=== PATIENT | female | born 1965 | race Hispanic/Latino ===

== ENCOUNTER → 2017-12-08 | Outpatient (CLI) | payer OTHER | END | disposition home or self-care (01) | LOC: OIH 13:29 | PROVIDERS: ATTEND Family Medicine | DX: Z13.6 Encounter for screening for cardiovascular disorders (principal) | CPT/HCPCS: 75571 ==

== ENCOUNTER → 2017-12-12 | Outpatient (CLI) | payer BC | END | disposition home or self-care (01) | LOC: OIH 15:09 | PROVIDERS: ATTEND Family Medicine | DX: I10 Essential (primary) hypertension (principal) | CPT/HCPCS: 71046 ==

== ENCOUNTER → 2018-03-13 | Outpatient (CLI) | payer BC | END | disposition home or self-care (01) | LOC: RAH 11:06 | PROVIDERS: ATTEND Family Medicine | DX: R22.1 Localized swelling, mass and lump, neck (principal) | CPT/HCPCS: 76536 ==

== ENCOUNTER → 2018-04-15 | Outpatient (CLI) | payer BC | END | disposition home or self-care (01) | LOC: RAH 08:30 | PROVIDERS: ATTEND Obstetrics & Gynecology | DX: Z12.31 Encounter for screening mammogram for malignant neoplasm of breast (principal); N63.21 Unspecified lump in the left breast, upper outer quadrant | CPT/HCPCS: 77067 ==

== ENCOUNTER → 2018-04-22 | Outpatient (CLI) | payer BC | END | disposition home or self-care (01) | LOC: RAH 10:56 | PROVIDERS: ATTEND Obstetrics & Gynecology | DX: N60.02 Solitary cyst of left breast (principal) | CPT/HCPCS: 76641 ==

== ENCOUNTER → 2018-05-05 | Outpatient (CLI) | payer BC | END | disposition home or self-care (01) | LOC: RAH 07:54 | PROVIDERS: ATTEND Obstetrics & Gynecology | DX: N60.02 Solitary cyst of left breast (principal) | CPT/HCPCS: 76642 ==

== ENCOUNTER → 2022-10-18 | Outpatient (CLI) | payer BC | END | disposition home or self-care (01) | LOC: RAH 12:24 | PROVIDERS: ATTEND Obstetrics & Gynecology | DX: N60.02 Solitary cyst of left breast (principal); N60.12 Diffuse cystic mastopathy of left breast | CPT/HCPCS: 76641; 77066 ==

== ENCOUNTER → 2023-07-03 | Outpatient (CLI) | payer BC | END | disposition home or self-care (01) | LOC: RAH 08:32 | PROVIDERS: ATTEND Obstetrics & Gynecology | DX: N60.12 Diffuse cystic mastopathy of left breast (principal); N60.42 Mammary duct ectasia of left breast; R92.322 Mammographic fibroglandular density, left breast | CPT/HCPCS: 76641; 77065 ==

== ENCOUNTER → 2023-12-05 | Outpatient (CLI) | payer BC | END | disposition home or self-care (01) | LOC: RAH 10:02 | PROVIDERS: ATTEND Family Medicine | DX: J20.9 Acute bronchitis, unspecified (principal) | CPT/HCPCS: 71046 ==

== ENCOUNTER 2024-05-26 17:08 | Emergency (ER) | payer BC ==
[~2024-05-26] VITALS: Ht 162.6 cm; Wt 72.6 kg
--- NOTE | 2024-05-26 17:20 | ERN ---
ED Note History of Present Illness Stated Complaint: LOWER RIGHT PAIN SHOOTING DOWN TO RIGHT LEG Chief Complaint: Hip Pain/Injury Time Seen by MD: 17:08 Dictation: 59-YEAR-OLD FEMALE COMING IN TODAY WITH COMPLAINTS OF NON TRAUMA RIGHT LATERAL LUMBAR PAIN THAT RADIATES DOWN THE POSTERIOR RIGHT LEG ONSET WAS 4-5 DAYS PRIOR TO ARRIVAL. SHE STATES SHE WAS SITTING ON THE FLOOR WRAPPING GIFTS WHEN SHE LE ANED OVER FELT A POP AND THEN THE PAIN. SHE DENIES ANY CHANGE IN BOWEL OR BLADDER FUNCTION NO CHANGE IN URINATION. SHE TOOK A FLOMAX TODAY, HAS NOT BEEN ABLE TO SEE HER PRIMARY CARE DOCTOR. DENIES ANY HISTORY OF PASS LUMBAR INJURIES OR SURGERIES. NO FEVER NO CHILLS Allergies: Coded Allergies: No Known Drug Allergies (Unverified Allergy, Unknown, 05/05/18) Past Medical History History: Not Applicable RN Note Reviewed/Agreed w/PFSH: Yes Review of System Dictation CONSTITUTIONAL: NEGATIVE EXCEPT FOR HPI HEAD/FACE: NEGATIVE EXCEPT FOR HPI EENT: NEGATIVE EXCEPT FOR HPI RESPIRATORY: NEGATIVE EXCEPT FOR HPI GASTROINTESTINAL/ABDOMINAL: NEGATIVE EXCEPT FOR HPI GENITOURINARY: NEGATIVE EXCEPT FOR HPI MUSCULOSKELETAL: NEGATIVE EXCEPT FOR HPI RIGHT LUMBAR PAIN THAT RADIATES INTEGUMENTARY: NEGATIVE EXCEPT FOR HPI NEUROLOGICAL/PSYCH: NEGATIVE EXCEPT FOR HPI HEMATOLOGIC/LYMPHATIC: NEGATIVE EXCEPT FOR HPI ALL SYSTEMS NEGATIVE, EXCEPT NOTED ABOVE. 13 POINT REVIEW OF SYSTEMS ASSESSED AND ALL NEGATIVE EXCEPT FOR ABOVE. Initial Vital Sign VS Vital Signs Date Time Temp Pulse Resp B/P (MAP) Pulse Ox O2 Delivery O2 Flow Rate FiO2 05/26/24 17:20 97.9 69 20 133/88 99 Room Air 0 Physical Exam Dictation VITAL SIGNS REVIEWED GENERAL APPEARANCE: ALERT, ORIENTED X 3, MODERATE ACUTE DISTRESS, WELL DE VELOPED, NOURISHED. HEAD AND FACE: NON-TRAUMATIC. EYES: PERRL, PINK CONJUNCTIVAS, EYELID NO TRAUMA, ANTERIOR CHAMBER WITH ARCUS SENILIS. EARS: PINNAS INTACT AND NO SIGNS OF TRAUMA OR ERYTHEMA EAR CANALS CLEAR AND NO DISCHARGE TM NO ERYTHEMA NOSE: NO DISCHARGE, NO BLEEDING. OROPHARYNX: MOUTH NORMAL, TONGUE PINK, PHARYNX CLEAR,NO ERYTHEMA, TONSILS NO EXUDATES, NO ABSCESSES NOTED, MUCOUS MEMBRANE MOIST NECK: SUPPLE, NON-TENDER, NO THYROMEGALY, NO MASSES, NO JVD, NO BRUITS BREAST:DEFERRED CHEST:NO TENDERNESS, NO CREPITUS, NO PARADOXICAL MOVEMENT, NO RETRACTIONS LUNGS:CLEAR, WELL-VENTILATED, SYMMETRIC, NO RALES, NO WHEEZING, NO RHONCHI, NO STRIDOR, GOOD BREATH SOUNDS BILATERALLY HEART: REGULAR RATE, REGULAR RHYTHM, NO MURMUR, NO GALLOPS VASCULAR: NO PERIPHERAL EDEMA, ABDOMEN: SOFT, POSITIVE BOWEL SOUNDS, NONDISTENDED, NO GUARDING, NONTENDER, NO REBOUND, NO MASSES NO HEPATOMEGALY, NO SPLENOMEGALY, NO MORALES'S SIGN, NO HERNIAS. RECTAL: DEFERRED GENITAL: DEFERRED NEUROLOGICAL: NORMAL SPEECH, MOTOR FUNCTION INTACT, SENSORY FUNCTION INTACT MUSCULOSKELETAL: NECK NONTENDER, FULL RANGE OF MOTION, DIFFUSE RIGHT LATERAL L UMBAR TENDERNESS, FULL RANGE OF MOTION, NO MIDLINE SPINE PAIN OR OR STEP-OFFS. NEGATIVE STRAIGHT LEG RAISE BILATERALLY 10 EXTREMITIES: NONTENDER, FULL RANGE OF MOTION SKIN: COLOR PINK, DRY, NO TURGOR, NO RASH, NO LACERATIONS, NO ABRASIONS, NO CONTUSIONS. LYMPHATIC: DEFERRED Results (Laboratory/Radiology) Laboratory/Radiology 1755, LUMBAR X-RAY DEMONSTRATES DEGENERATIVE CHANGES WITH MILD SCOLIOTIC LEAN. NO FRACTURE Labs Reviewed?: Yes ED Course ED Course Orders Procedure Category Date Status Time Lumbar Spine 2-3vws RAD 05/26/24 Taken 17:17 Cyclobenzaprine Hcl PHA 05/26/24 Complete (Cyclobenzaprine Hcl 17:30 Dexamethasone 4mg/Ml PHA 05/26/24 Complete 1ml Vial (Dexametha 17:30 Ibuprofen 800 Mg Tab PHA 05/26/24 Complete (Motrin) 17:30 Current Medications Medications (Trade) Dose Ordered Sig/Shante Route PRN Reason Start Time Stop Time Status Last Admin Dose Admin Cyclobenzaprine HCl (Cyclobenzaprine HCl) 10 mg ONCE ONCE PO 1824 17:30 1824 17:31 DC Dexamethasone Sodium Phosphate (dexaMETHasone 4MG/ML 1ML VIAL) 8 mg ONCE ONCE IM 05/26/24 17:30 1824 17:31 DC Ibuprofen (moTRIN) 800 mg ONCE ONCE PO 24 17:30 1824 17:31 DC Vital Signs Date Time Temp Pulse Resp B/P (MAP) Pulse Ox O2 Delivery O2 Flow Rate FiO2 05/26/24 17:20 97.9 69 20 133/88 99 Room Air 0 1755, PATIENT STATES PAIN IS BEGINNING TO BE REDUCED AFTER TREATMENT WITH MEDICATIONS WE WILL BE DISCHARGED HOME WITH ACUTE LUMBAR PAIN WITH RADICULO TAI. NEUROLOGICALLY INTACT TO OTHERWISE Medical Decision Making MDM MEDICAL DISCHARGE MAKING BASED ON EMPIRIC TREATMENT FOR LUMBAR PAIN AND X-RAY. X-RAY DEMONSTRATES DEGENERATIVE CHANGES ONLY WITH MILD SCOLIOSIS PATIENT DISCHARGED HOME NEUROLOGICALLY INTACT WE WILL BE GIVEN MEDROL DOSEPAK/IBUPROFEN/FLEXERIL TOLD TO FOLLOW UP WITH HER PRIMARY CARE DOCTOR IN 1-2 DAYS. DX & DISP Disposition: Discharge Departure Impression: Primary Impression: Lumbar back pain with radiculopathy affecting right lower extremity Condition: Stable Scripts Cyclobenzaprine HCl (Cyclobenzaprine HCl) 10 Mg Tablet 1 TAB PO TID for muscle spasms for 10 Days, #30 TAB 0 Refills Prov: RYAN MAX NP 05/26/24 Ibuprofen (Ibuprofen 800 mg Tab) 800 Mg Tab 800 MG PO Q8H PRN for fever or pain, #30 TAB 0 Refills Prov: RYAN MAX NP 05/26/24 Additional Instructions: FOLLOW-UP WITH PRIMARY CARE PROVIDER IN 1 TO 2 DAYS. TAKE MEDICATIONS DIRECTED HERE IN THE EMERGENCY ROOM. OKAY TO CONTINUE HOME MEDICATIONS UNLESS OTHERWISE DISCUSSED DURING YOUR VISIT IN THE EMERGENCY ROOM TODAY. RETURN TO YOUR NEAREST EMERGENCY ROOM IF SYMPTOMS WORSEN OR IF THERE IS NO IMPROVEMENT. CALL 911 IF YOU NEED IMMEDIATE ASSISTANCE. TAKE TYLENOL OR MOTRIN [id number] NEEDED AND IF NO CONTRAINDICATIONS ARE PRESENT. INCREASE ORAL HYDRATION. A WOUND CULTURE OR URINE CULTURE WAS ORDERED HERE IN THE EMERGENCY ROOM DEPARTMENT PLEASE FOLLOW-UP WITH PRIMARY CARE PROVIDER AND ADVISE THEM TO GET REPEAT PORTS FROM OUR FACILITY. IF YOU HAD ANY WAYNE WRAP/SPLINTS THAT WERE APPLIED HERE, PLEASE DO NOT REMOVE THEM UNTIL YOU SEE YOUR PRIMARY CARE OR SPECIALTY. TAKE IBUPROFEN AND FLEXERIL EVERY 8 HOURS WITH FOOD FOR THE NEXT THREE DAYS. NO LIFTING GREATER THAN 10 LB UNTIL CLEARED BY YOUR PRIMARY CARE DOCTOR. APPLY WARM COMPRESSES TO PAIN Referrals: ALEJANDRA SIEGEL MD (PCP) Time of Disposition: 17:57 I have reviewed the case, and I agree with, Diagnosis and Plan RYAN MAX NP May 26, 2024 17:20
[2024-05-26] MEDS ORDERED: CYCL-309 PO (17:58)
[2024-05-26] MEDS ORDERED: IBUP-2077 PO (17:58)
[2024-05-26 18:13] VITALS: BP 130/85; PULSE 69; RESP 16; TEMP 98.3; O2SAT 98
--- NOTE | 2024-05-26 18:15 | HMCIMG ---
Lumbar spine 2 views Comparison Study: none History: RIGHT LUMBAR PAIN THAT RADIATES DOWN POSTERIOR RIGHT LEG Findings: Exam of the lumbosacral spine demonstrates no evidence of fracture or subluxation. There are mild spondylitic changes. The facet joints show minimal degenerative changes. The alignment of the spine is normal. The disc spaces are intact. Bone mineralization is normal. Impression: Spondylitic changes and degenerative changes of the apophyseal joints as noted.
[2024-05-26] MEDS: dexaMETHasone SOD PHOSPHATE 4 MG/ML 1ML VIAL IM ONE (18:18)
[2024-05-26] MEDS: CYCLOBENZAPRINE HCL 10 MG TABLET PO ONE (18:18)
[2024-05-26] MEDS: ibuPROFEN 800 MG TAB PO ONE (18:18)
== END 2024-05-26 18:34 | disposition home or self-care (01) ==
LOC: EDH 17:08
DX: M47.26 Other spondylosis with radiculopathy, lumbar region (principal)
CPT/HCPCS: 99284; 72100; 96372; J1100

== ENCOUNTER → 2025-01-11 | Outpatient (CLI) | payer BC ==
[~2025-01-11] MED LIST: CYCL-309 PO; IBUP-2077 PO
--- NOTE | 2025-01-11 10:52 | HMCIMG ---
BILATERAL BREAST ULTRASOUND: CLINICAL HISTORY: 59-year-old female with history of left breast cysts for annual mammography and ultrasound. Prior ultrasound from 07/03/2023 is available. Findings: Real-time examination of the both breasts demonstrates homogeneous echotexture throughout both the breasts without evidence of focal solid masses. The left breast at 7:00 there is a small cyst which was seen before and appears to be unchanged measuring 0.3 x 0.2 x 0.3 cm. Otherwise both breasts has no cysts seen. There is benign appearing axillary lymph node on the right it measures 1.7 x 0.5 x 1.7 cm the second cyst lymph node measuring 1.0 x 0.6 x 1.0 cm. On the left axillary region there is a lymph node measuring 1.1 x 0.6 x 1.0 cm second lymph node measuring 1.7 x 0.6 x 1.6 cm. IMPRESSION: Unchanged small cyst in the left breast otherwise no solid mass seen. I would recommend annual mammography with tomography with bilateral breast sonogram. CATEGORY 2: BENIGN FINDINGS Recommend monthly self breast exam as well as annual clinical examination. A negative x-ray should not delay biopsy if a dominant or clinically suspicious mass is present, since 8-10% of cancers are not identified by mammography. Dense breasts particularly, may obscure an underlying neoplasm. Some of these may be detected clinically and therefore, clinical examination is an essential part of breast evaluation. .
--- NOTE | 2025-01-11 10:57 | HMCIMG ---
DIGITAL both breasts DIAGNOSTIC MAMMOGRAM Technique: The digital mammographic examination of bilateral breasts in craniocaudal, mediolateral oblique views along with CAD was obtained. Patient also had bilateral breast sonogram. History: This is a 59 years year-old female 2, para2 Ab0 . Patient has no family history of breast cancer. Patient has no complaint Reference:Prior mammogram from 01/11/2025, 07/03/2023, 10/18/2022, 04/15/2018 are available for comparison. Breast composition: Breast composition C: The breasts are heterogeneously dense, which may obscure small masses. Finding: The digital mammographic examination of both breasts in craniocaudal and mediolateral oblique view along with CAD demonstrates to be moderately heterogeneously nodular dense breasts.. Coned-down compression view of the left breast demonstrate nodular density. Ultrasound demonstrate a small cyst in the left breast. There is no evidence of any dendritic mass, cluster microcalcification or architectural distortion. The retromammary fat appears to be normal. IMPRESSION: NO RADIOGRAPHIC EVIDENCE OF MALIGNANT CHANGES. WE WOULD RECOMMEND ANNUAL FOLLOW UP WITH TOMOSYNTHESIS UNLESS OTHERWISE CLINICALLY INDICATED. Due to nodular dense breasts I would recommend annual bilateral breast sonogram. FINAL ASSESSMENT: ACR: BI-RAD- 2. Benign: Also a negative assessment; finding(s) benign abnormalities. Management: Routine mammography screening. Likelihood of Cancer: Essentially 0% likelihood of malignancy. NOTE: IF A WORK-UP OF THIS PATIENT LEADS TO A BIOPSY, PLEASE FORWARD A COPY OF THE PATHOLOGY REPORT TO OUR OFFICE REQUIRED BY [employer] MARCH 09, 1994. A NEGATIVE MAMMOGRAM SHOULD NOT PRECLUDE BIOPSY OF A CLINICALLY PALPABLE SUSPICIOUS MASS, 10% OF BREAST CANCERS ARE MAMMOGRAPHICALLY OCCULT. THIS MAMMOGRAPHY FACILITY IS FULLY ACCREDITED BY THE FOOD AND DRUG ADMINISTRATION (FDA). THANK YOU FOR THIS REFERRAL.
--- NOTE | 2025-01-18 08:32 | HMCIMG ---
CLINICAL INDICATION: Asymptomatic menopausal state COMPARISON: None available TECHNIQUE: Bone densitometry is performed of the lumbar spine and left hip. FINDINGS: Total BMD of lumbar spine is 0.821 g/cm2 with a T-score of -2.1 and Z-score is -0.5, . Total BMD of left hip is 0.817 g/cm2 with a T-score of -1.1 and Z-score is -0.1. FRAX SCORE: The 10 year fracture risk for a major osteoporotic fracture and hip fracture 5.1% IMPRESSION: 1. Osteopenia of the lumbar spine and left hip 2. I would recommend follow-up in 13 months World Health Organization criteria for BMD interpretation classify patients as Normal (T-score at or above -1.0), Osteopenic (T-score between -1.0 and -2.5), or Osteoporotic (T-score at or below -2.5). FRAX SCORE: A. All treatment decisions require clinical judgment and consideration of individual patient factors, including patient preferences, comorbidities, previous drug use, risk factors not captured in the FRAX model (e.g., frailty, falls, vitamin D deficiency, increased bone turnover, interval significant decline in bone density) and possible [id number]-estimation of fracture risk by FRAX. B. In addition, the NOF Guide recommends that FDA-approved medical therapies be considered in postmenopausal women and men age greater than or equal to 50 years with a: i. Hip or vertebral (clinical or morphometric) fracture. ii. T-score of less than or equal to -2.5 at the spine or hip. iii. Ten-year fracture probability by FRAX of greater than or equal to 3% for hip fracture of greater than or equal to 20% for major osteoporotic fracture.
== END | disposition home or self-care (01) ==
LOC: RAH 07:45
PROVIDERS: ATTEND Obstetrics & Gynecology
DX: N60.02 Solitary cyst of left breast (principal); N60.12 Diffuse cystic mastopathy of left breast; N60.11 Diffuse cystic mastopathy of right breast; R92.333 Mammographic heterogeneous density, bilateral breasts; M85.89 Other specified disorders of bone density and structure, multiple sites; Z78.0 Asymptomatic menopausal state
CPT/HCPCS: 77066; 77080